=== PATIENT | female | born 1945 | race African-American/Black ===

== ENCOUNTER → 2016-07-26 | Outpatient (CLI) | payer OTHER ==
[~2016-07-26] MED LIST: AAA-MED REC COMPLETE; AAA-MED REC COMPLETE PO; ACTOS 30 MG TAB30 M1 PO; ALAVERT10 M1 PO; ALAVERT10 MG; CALCITRIOL0.5 MCG PO; CLONAZEPAM 0.50.5 M1 PO; CRESTOR20 MG PO; CYCLOBENZAPRINE10 MG PO; ENBREL 25 MG KI25 M1 SUBQ; ENDOCET 10-3251 EACH PO; FENTANYL 1100 MCG/HR TRANSDERM; FLOVENT HFA 1110 MCG INH; FLU; GLYCOLAX POWDER17 GM; GLYCOLAX255 GM PO; LO-DOSE ASPIRIN81 M1 PO; MIDODRINE HCL10 MG PO; NEURONTIN 300300 M1 PO; NEXIUM40 MG; PROAMATINE10 MG; PROTONIX40 M1 PO; PROZAC 20 MG20 MG PO; RENVELA800 MG PO; SENSIPAR90 MG PO; TUMS PO; VITAMIN E200 UNI4 PO; XOPENEX HFA15 GM INH; [UNRECOGNIZED DRUG - OTHER]
== END ==
LOC: HYPER 06:59
DX: S31.102D Unspecified open wound of abdominal wall, epigastric region without penetration into peritoneal cavity, subsequent encounter (principal); E11.22 Type 2 diabetes mellitus with diabetic chronic kidney disease; N18.6 End stage renal disease; E78.5 Hyperlipidemia, unspecified; J44.9 Chronic obstructive pulmonary disease, unspecified; M06.9 Rheumatoid arthritis, unspecified; M19.90 Unspecified osteoarthritis, unspecified site; F32.9 Major depressive disorder, single episode, unspecified; Z90.710 Acquired absence of both cervix and uterus; Z99.2 Dependence on renal dialysis; Z87.891 Personal history of nicotine dependence; X58.XXXD Exposure to other specified factors, subsequent encounter

== ENCOUNTER 2017-01-08 20:18 | Emergency (ER) | payer OTHER ==
[~2017-01-08] VITALS: Ht 157.5 cm; Wt 104.3 kg
== END 2017-01-08 23:15 | disposition home or self-care (01) ==
LOC: ER 20:18
DX: R04.0 Epistaxis (principal); G47.33 Obstructive sleep apnea (adult) (pediatric); N18.6 End stage renal disease; F32.9 Major depressive disorder, single episode, unspecified; E11.22 Type 2 diabetes mellitus with diabetic chronic kidney disease; J45.909 Unspecified asthma, uncomplicated; K21.9 Gastro-esophageal reflux disease without esophagitis; E78.00 Pure hypercholesterolemia, unspecified; Z99.2 Dependence on renal dialysis; Z99.81 Dependence on supplemental oxygen; Z90.710 Acquired absence of both cervix and uterus; Z86.2 Personal history of diseases of the blood and blood-forming organs and certain disorders involving the immune mechanism; Z88.0 Allergy status to penicillin

== ENCOUNTER 2017-11-26 22:07 | Emergency (ER) | payer OTHER ==
[~2017-11-26] VITALS: Ht 152.4 cm; Wt 111.1 kg
--- NOTE | ~2017-11-26 | EKG ---
[place] [address] [place] [address] ELECTROCARDIOGRAM REPORT Name: CHERELLE PRINGLE Room #: [facility] SARITHA Tubbs#: [id number] Admission: 11/26/17 Attend Phys: Discharge: 11/27/17 Date of : 43 Report #: [id number] THIS REPORT FOR: //name// [facility] ED Test Date: 2017-11-26 Test Time: 22:21:56 Pat Name: CHERELLE PRINGLE Department: Room: Gender: F [employer] Operator: eber : 1945 Requested By: Chen Ford Order Number: [id number] MD: Dom Garzon Measurements Intervals [place] Rate: 103 P: 32 VA: 156 QRS: -65 QRSD: 105 T: 16 QT: 373 QTc: 489 Interpretive Statements Sinus tachycardia Inferior infarct, old Poor R wave progression Compared to ECG 11/16/2011 17:47:59 No significant changes Electronically Signed On 11-27-2017 8:44:18 CDT by Dom Garzon [email or web address] <ELECTRONICALLY SIGNED> By: Dom Garzon MD, [facility] 11/27/17 0844 20 20 Dom Garzon MD, FACC /EPI
[2017-11-26 23:01] LABS: ABSOLUTE NEUTROPHILS 10.3 thou/uL (1.4-8.2); BASOPHILS 0.3 % (0.0-2.0); EOSINOPHILS 0.2 % (0.0-3.0); HEMATOCRIT 34.1 % (37.0-47.0); HEMOGLOBIN 11.4 gm/dL (12.0-15.0); LYMPHOCYTES 4.5 % (24.0-44.0); MCH 31.9 pg (26.0-34.0); MCHC 33.5 g/dL (28.0-37.0); MCV 95.1 fL (80.0-100.0); MONOCYTES 8.8 % (1.0-8.0); PLATELET COUNT 191 thou/uL (150-400); POLYS 86.2 % (36.0-66.0); RBC 3.58 mil/uL (4.20-5.00); RDW 19.5 % (10.5-14.5); WBC 11.9 thou/uL (4.0-11.0)
[2017-11-26 23:09] LABS: ANION GAP 15 mmol/L (7-16); BUN 63 mg/dL (7-18); CALCIUM 8.2 mg/dL (8.5-10.1); CHLORIDE 94 mmol/L (98-107); CO2 26 mmol/L (21-32); CREATININE 9.3 mg/dL (0.6-1.0); GLUCOSE 189 mg/dL (74-106); POTASSIUM 4.6 mmol/L (3.5-5.1); SODIUM 135 mmol/L (136-145)
[2017-11-26 23:18] LABS: TROPONIN-I <0.06 ng/mL (<0.06)
[2017-11-26 23:34] LABS: ALBUMIN 3.7 g/dL (3.4-5.0); DIRECT BILIRUBIN 0.1 mg/dL (<0.1-0.3); TOTAL BILIRUBIN 0.6 mg/dL (<0.1-1.0); TOTAL PROTEIN 8.3 g/dL (6.4-8.2)
== END 2017-11-27 00:33 | disposition home or self-care (01) ==
LOC: ER 22:07
PROVIDERS: Emergency Medicine
DX: J02.8 Acute pharyngitis due to other specified organisms (principal); B34.9 Viral infection, unspecified; R53.1 Weakness; R00.0 Tachycardia, unspecified; J45.909 Unspecified asthma, uncomplicated; E11.9 Type 2 diabetes mellitus without complications; E78.5 Hyperlipidemia, unspecified; M19.90 Unspecified osteoarthritis, unspecified site; F32.9 Major depressive disorder, single episode, unspecified; K21.9 Gastro-esophageal reflux disease without esophagitis; E78.00 Pure hypercholesterolemia, unspecified; I73.9 Peripheral vascular disease, unspecified; Z90.710 Acquired absence of both cervix and uterus; Z87.891 Personal history of nicotine dependence; Z88.0 Allergy status to penicillin